=== PATIENT | female | born 1990 | race Caucasian/White ===

== ENCOUNTER 2018-08-30 13:36 | Emergency (ER) | payer MEDICAID ==
[~2018-08-30] VITALS: Ht 162.6 cm; Wt 52.3 kg
[~2018-08-30 13:36] MED LIST: CEPH-368 PO; IBUP-1222 PO; NITR100C56 PO; OXYC-302 PO; PREN1TAB56 PO
[2018-08-30 14:30] LABS: BASOPHILS # (AUTO) 0.05 x10^3/uL (0-0.1); BASOPHILS % (AUTO) 1 % (0-1); EOSINOPHILS # (AUTO) 0.14 x10^3/uL (0-0.4); EOSINOPHILS % (AUTO) 2 % (1-7); LYMPHOCYTES # (AUTO) 1.47 x10^3/uL (1-3.4); LYMPHOCYTES % (AUTO) 18 % (22-44); MD NO; MEAN CORPUSCULAR HEMOGLOBIN 28.7 pg (27.0-34.8); MEAN CORPUSCULAR HGB CONC 33.7 g/dL (32.4-35.8); MEAN CORPUSCULAR VOLUME 85.3 fL (80-100); MEAN PLATELET VOLUME 8.4 fL (7.4-10.4); MONOCYTES # (AUTO) 0.43 x10^3/uL (0.2-0.8); MONOCYTES % (AUTO) 5 % (2-9); NEUTROPHILS # (AUTO) 6.08 x10^3/uL (1.8-6.8); NEUTROPHILS % (AUTO) 74 % (42-75); PLATELET COUNT 324 x10^3/uL (130-400); RED BLOOD COUNT 5.18 x10^6/uL (3.82-5.3)
[2018-08-30 14:39] LABS: ALBUMIN 4.9 g/dL (3.4-5.0); ANION GAP 9 mmol/L (5-15); CALCIUM 9.5 mg/dL (8.5-10.1); CHLORIDE 106 mmol/L (98-107)
[2018-08-30 14:40] LABS: CREATININE 0.92 mg/dL (0.55-1.02)
[2018-08-30 16:13] VITALS: BP 116/77
[2018-08-30 16:26] LABS: CULTURE INDICATED? YES; HCG UR SG 1.026 (1.003-1.030); MICROSCOPIC INDICATED
[2018-08-30] MEDS ORDERED: CEFTRIAXONE 1,000 MG ONE (16:51)
[2018-08-30] MEDS ORDERED: CEFTRIAXONE 1,000 MG IM ONE (17:00)
== END 2018-08-30 17:16 | disposition home or self-care (01) ==
LOC: ED 17:10
DX: N30.01 Acute cystitis with hematuria (principal); F32.9 Major depressive disorder, single episode, unspecified
CPT/HCPCS: 36415; 80048; 81001; 81025; 82040; 83605; 85025; 87077; 87086; 96372; 99283; J0696; 87186

== ENCOUNTER 2018-10-01 14:21 | Emergency (ER) | payer MEDICAID ==
[~2018-10-01] VITALS: Ht 162.6 cm; Wt 50.3 kg
--- NOTE | 2018-10-01 14:34 | NUR ---
LATE ENTRY FOR 14:34. PT C/O UN-TREATED C-DIFF X 3 WEEKS. PT FAILED TO HAVE RX'S FILLED THAT WERE WRITTEN 3 WEEKS AGO AT [facility] DUE TO MED'S COST. PT DENIES V/N AND PAIN AT THIS TIME. PT AOX4. RESPS EVEN AND UNLABORED. SAO2 AND BP MONITORS IN PLACE. AWAITING ORDERS.
[2018-10-01] MEDS ORDERED: SERT100T5 PO (14:57)
[2018-10-01] MEDS ORDERED: ARIP2TAB2 PO (14:57)
[2018-10-01] MEDS ORDERED: TRAZ-137 PO (14:58)
[2018-10-01] MEDS ORDERED: SODIUM CHLORIDE FLUSH 10ML SYR IVF ONE (15:00)
--- NOTE | 2018-10-01 15:00 | NUR ---
Alexis dunn in [facility] - 10/01/18 at 1646 by ZHANG PT TO ROOM FROM SCOTTY
--- NOTE | 2018-10-01 15:05 | NUR ---
special contact precautions in place
[2018-10-01 15:06] LABS: MEAN CORPUSCULAR HEMOGLOBIN 28.1 pg (27.0-34.8); MEAN CORPUSCULAR VOLUME 85.2 fL (80-100); MEAN PLATELET VOLUME 7.8 fL (7.4-10.4); PLATELET COUNT 392 x10^3/uL (130-400); RED BLOOD COUNT 5.38 x10^6/uL (3.82-5.3); RED CELL DISTRIBUTION WIDTH 14.4 % (9.6-15.2)
[2018-10-01 15:14] LABS: ALANINE AMINOTRANSFERASE 18 U/L (12-78); ALBUMIN 4.1 g/dL (3.4-5.0); ANION GAP 10 mmol/L (5-15); CALCIUM 9.1 mg/dL (8.5-10.1); CHLORIDE 107 mmol/L (98-107)
[2018-10-01 15:19] LABS: ALKALINE PHOSPHATASE 111 U/L (45-117); BILIRUBIN,TOTAL 0.4 mg/dL (0.2-1.0); TOTAL PROTEIN 8.1 g/dL (6.4-8.2)
--- NOTE | 2018-10-01 15:45 | NUR ---
PT URINATING IN BEDSIDE COMMODE FOR UA.
[2018-10-01 15:51] LABS: BASOPHILS # (AUTO) 0.05 x10^3/uL (0-0.1); BASOPHILS % (AUTO) 0 % (0-1); EOSINOPHILS # (AUTO) 3.61 x10^3/uL (0-0.4); EOSINOPHILS % (AUTO) 28 % (1-7); LYMPHOCYTES # (AUTO) 2.09 x10^3/uL (1-3.4); LYMPHOCYTES % (AUTO) 16 % (22-44); MD SCAN; MONOCYTES % (AUTO) 4 % (2-9); NEUTROPHILS # (AUTO) 6.52 x10^3/uL (1.8-6.8); NEUTROPHILS % (AUTO) 51 % (42-75)
[2018-10-01 15:52] LABS: MICROSCOPIC AUTO
[2018-10-01 15:54] LABS: CULTURE INDICATED? YES
--- NOTE | 2018-10-01 16:00 | NUR ---
This RN discussed WBC and HR with EDPA (pt meeting SIRS criteria). Pt has not been able to produce stool so far. Pt instructed on need to provide stool sample for cdiff screen and leukocyte analysis. BSC with hat placed in room for collection.
--- NOTE | 2018-10-01 16:57 | NUR ---
PT RESTING IN [place]. PT HAS NOT BEEN ABLE TO PRODUCE STOOL YET. BEDSIDE COMMODE IN PT'S ROOM. SAO2 AND BP MONITORS IN PLACE. DENIES PAIN, NEEDS AND CONCERNS AT THIS TIME. CALL LIGHT WITHIN REACH. PT AOX4. RESPS EVEN AND UNLABORED.
--- NOTE | 2018-10-01 17:18 | NUR ---
PT PROVIDED SOME JUICE AND CRACKERS. PT AOX4. RESPS EVEN AND UNLABORED. DENIES ANY NEEDS AND CONCERNS AT THIS TIME.
--- NOTE | 2018-10-01 17:43 | NUR ---
Pt has not been able to produce stool yet so far. sao2 and bp monitors in place. call light within reach. denies any pain, needs and concerns at this time. pt provided warm blanket at this time.
[2018-10-01 18:43] VITALS: BP 107/71
--- NOTE | 2018-10-01 18:45 | NUR ---
Note shaun in EDM - 10/01/18 at 1847 by PAUL PT GIVEN DC INSTRUCTIONS AND SCRIPTS. PT EDUCATED REAGRDING DC MEDICATIONS WHICH ARE MCROBID AND ODT. PT AMB TO DC WITH STEADY GAIT. NO ACUTE DISTRESS AT DC.
--- NOTE | 2018-10-01 18:47 | NUR ---
PT GIVEN DC INSTRUCTIONS AND SCRIPTS. PT EDUCATED REAGRDING DC MEDICATIONS WHICH ARE MACROBID AND ODT. PT AMB TO DC WITH STEADY GAIT. NO ACUTE DISTRESS AT DC.
== END 2018-10-01 18:45 | disposition home or self-care (01) ==
LOC: ED 18:13
DX: N30.01 Acute cystitis with hematuria (principal); R19.7 Diarrhea, unspecified
CPT/HCPCS: 36415; 80053; 81001; 84703; 85025; 87086; 99283

== ENCOUNTER 2018-10-05 15:15 | Emergency (ER) | payer MEDICAID ==
[~2018-10-05] VITALS: Ht 162.6 cm; Wt 50.0 kg
[~2018-10-05 15:15] MED LIST changes: +ARIP2TAB2 PO; +SERT100T5 PO; +TRAZ-137 PO
[2018-10-05 15:18] VITALS: BP 109/61
--- NOTE | 2018-10-05 15:41 | NUR ---
PT CELESTINO [facility] FROM REHAB FACILITY FOR INCREASED URINARY FREQUENCY, ABD PAIN AND PAINFUL URINATION. SEEN THURSDAY FOR SAME BUT PT STATES, "I THINK I MIGHT BE RESISTENT TO MACROBID BECAUSE I GET UTIS ALL THE TIME AND DEBBY BEEN TAKING IT WITHOUT GETTING ANY BETTER." NO N/V OR BACK PAIN. VSS. CALL LIGHT WITHIN REACH. AWAITING FURTHER ORDERS AT THIS TIME
[2018-10-05 16:18] LABS: MEAN CORPUSCULAR HEMOGLOBIN 28.5 pg (27.0-34.8); MEAN CORPUSCULAR VOLUME 83.8 fL (80-100); MEAN PLATELET VOLUME 7.7 fL (7.4-10.4); PLATELET COUNT 336 x10^3/uL (130-400); RED BLOOD COUNT 4.61 x10^6/uL (3.82-5.3); RED CELL DISTRIBUTION WIDTH 14.2 % (9.6-15.2)
[2018-10-05 16:19] LABS: MD YES
[2018-10-05 16:21] LABS: ALANINE AMINOTRANSFERASE 17 U/L (12-78); ALBUMIN 3.4 g/dL (3.4-5.0); ANION GAP 7 mmol/L (5-15); CALCIUM 8.7 mg/dL (8.5-10.1); CHLORIDE 110 mmol/L (98-107); CREATININE 0.58 mg/dL (0.55-1.02)
[2018-10-05 16:24] LABS: ALKALINE PHOSPHATASE 94 U/L (45-117); BILIRUBIN,TOTAL 0.3 mg/dL (0.2-1.0); TOTAL PROTEIN 6.7 g/dL (6.4-8.2)
[2018-10-05 16:36] LABS: MICROSCOPIC INDICATED
--- NOTE | 2018-10-05 16:38 | NUR ---
IN AND OUT CATHETER FOR URINE PROCEDURE PERFORMED, USING STERILE TECHNIQUE THROUGHOUT, AND AN 8FR CATHETER. PT TOLERATED WELL. URINE SENT TO LAB.
[2018-10-05 16:51] LABS: CULTURE INDICATED? YES
[2018-10-05 17:01] LABS: BASOS% (MANUAL) 2 % (0-1); EOS% (MANUAL) 30 % (1-7); LYMPHS% (MANUAL) 27 % (22-44); SEGS% (MANUAL) 41 % (42-75)
[2018-10-05 17:02] LABS: <PLATELET ESTIMATE> ADEQUATE; <PLT MORPHOLOGY> NORMAL PLT MORPH; <RBC MORPHOLOGY> NORMAL
--- NOTE | 2018-10-05 17:13 | NUR ---
PT RESTING IN ROOM. LOUANN FORREST. CALL LIGHT WITHIN REACH. AWAITING LAB RESULTS AND RECHECK AT THIS TIME
[2018-10-05 17:16] LABS: HCG UR SG 1.025 (1.003-1.030)
== END 2018-10-05 17:42 | disposition home or self-care (01) ==
LOC: ED 16:19
DX: N30.00 Acute cystitis without hematuria (principal); F31.9 Bipolar disorder, unspecified
CPT/HCPCS: 36415; 80053; 81001; 81025; 85025; 87086; 99283

== ENCOUNTER 2018-12-02 13:14 | Emergency (ER) | payer MEDICAID ==
[~2018-12-02] VITALS: Ht 162.6 cm; Wt 51.0 kg
[~2018-12-02 13:14] MED LIST changes: +SERT100T32 PO; -SERT100T5 PO
[2018-12-02 13:34] VITALS: BP 109/76
--- NOTE | 2018-12-02 14:15 | NUR ---
TO ROOM 30
--- NOTE | 2018-12-02 14:15 | NUR ---
PELVIC SET UP
[2018-12-02] MEDS ORDERED: AZITHROMYCIN 250 MG TABLET ONE (14:27)
[2018-12-02] MEDS ORDERED: CEFTRIAXONE 250 MG ONE (14:27)
[2018-12-02] MEDS ORDERED: AZITHROMYCIN 250 MG TABLET PO ONE (14:30)
[2018-12-02] MEDS ORDERED: CEFTRIAXONE 250 MG IM ONE (14:30)
--- NOTE | 2018-12-02 14:55 | NUR ---
SBAR report received from RN, Isaac.
--- NOTE | 2018-12-02 15:20 | NUR ---
Patient/Caregiver given discharge instructions and they have confirmed that they understand the instructions. Patient ambulatory with steady gait.
== END 2018-12-02 15:22 | disposition home or self-care (01) ==
LOC: ED 15:18
DX: B34.9 Viral infection, unspecified (principal); A74.9 Chlamydial infection, unspecified; A54.9 Gonococcal infection, unspecified; F31.9 Bipolar disorder, unspecified
CPT/HCPCS: 87081; 87880; 96372; 99283; J0696; 87147

== ENCOUNTER 2018-12-10 11:28 | Emergency (ER) | payer MEDICAID ==
[~2018-12-10] VITALS: Ht 162.6 cm; Wt 50.5 kg
[2018-12-10 11:36] VITALS: BP 104/64
[2018-12-10 13:34] LABS: BASOPHILS # (AUTO) 0.03 x10^3/uL (0-0.1); BASOPHILS % (AUTO) 1 % (0-1); EOSINOPHILS # (AUTO) 0.15 x10^3/uL (0-0.4); EOSINOPHILS % (AUTO) 2 % (1-7); LYMPHOCYTES % (AUTO) 24 % (22-44); MD NO; MEAN CORPUSCULAR HEMOGLOBIN 28.3 pg (27.0-34.8); MEAN CORPUSCULAR HGB CONC 33.2 g/dL (32.4-35.8); MEAN CORPUSCULAR VOLUME 85.2 fL (80-100); MEAN PLATELET VOLUME 8.2 fL (7.4-10.4); MONOCYTES # (AUTO) 0.38 x10^3/uL (0.2-0.8); MONOCYTES % (AUTO) 5 % (2-9); NEUTROPHILS # (AUTO) 4.89 x10^3/uL (1.8-6.8); NEUTROPHILS % (AUTO) 68 % (42-75); PLATELET COUNT 318 x10^3/uL (130-400); RED BLOOD COUNT 5.33 x10^6/uL (3.82-5.3); RED CELL DISTRIBUTION WIDTH 14.4 % (9.6-15.2)
[2018-12-10 13:45] LABS: ALBUMIN 4.5 g/dL (3.4-5.0); ANION GAP 5 mmol/L (5-15); CALCIUM 9.3 mg/dL (8.5-10.1); CHLORIDE 112 mmol/L (98-107); CREATININE 0.79 mg/dL (0.55-1.02)
--- NOTE | 2018-12-10 16:08 | NUR ---
TO ROOM FROM LOBBY. NAD.
[2018-12-10 16:52] LABS: MICROSCOPIC INDICATED
[2018-12-10 17:05] LABS: CULTURE INDICATED? YES
[2018-12-10] MEDS ORDERED: DEXAMETHASONE 4 MG TABLET ONE (17:32)
--- NOTE | 2018-12-10 17:40 | NUR ---
PT MEDICATED PER EMAR. DC EDUCATION PROVIDED, PT DEMONSTRATES UNDERSTANDING. PT AMBULATED STEADILY TO DC WITH RN.
[2018-12-10] MEDS ORDERED: DEXAMETHASONE 4 MG TABLET PO ONE (18:00)
== END 2018-12-10 17:42 | disposition home or self-care (01) ==
LOC: ED 16:36
DX: J02.0 Streptococcal pharyngitis (principal); B95.5 Unspecified streptococcus as the cause of diseases classified elsewhere; N93.8 Other specified abnormal uterine and vaginal bleeding; F31.9 Bipolar disorder, unspecified; Z87.440 Personal history of urinary (tract) infections
CPT/HCPCS: 36415; 76830; 80048; 81001; 82040; 84703; 85025; 87086; 99284

== ENCOUNTER 2018-12-26 16:25 | Emergency (ER) | payer MEDICAID ==
[~2018-12-26] VITALS: Ht 162.6 cm; Wt 48.0 kg
--- NOTE | 2018-12-26 18:09 | NUR ---
[facility]
[2018-12-26 18:24] VITALS: BP 112/81
--- NOTE | 2018-12-26 18:25 | NUR ---
PT STATES UTI SYMPTOMS X2 DAYS, NO N/V/D REPORTED. LOWER ABD PAIN/CRAMPING. CONNECTED TO MONITORING, VSS. BRADSHAW TO BEDSIDE FOR ASSESSMENT, AWAITING ADDITIONAL ORDERS. UA COLLECTED AND SENT TO LAB. CALL LIGHT WITHIN REACH
[2018-12-26 18:39] LABS: CULTURE INDICATED? YES; MICROSCOPIC INDICATED
--- NOTE | 2018-12-26 18:39 | NUR ---
PT GIVEN FOOD PER MD PERMISSION.
[2018-12-26 18:40] LABS: HCG UR SG >= 1.030 (1.003-1.030)
--- NOTE | 2018-12-26 19:14 | NUR ---
Patient/Caregiver given discharge instructions and they have confirmed that they understand the instructions. Patient ambulatory with steady gait.
== END 2018-12-26 19:16 | disposition home or self-care (01) ==
LOC: ED 18:14
DX: N39.0 Urinary tract infection, site not specified (principal); R31.9 Hematuria, unspecified; F31.9 Bipolar disorder, unspecified
CPT/HCPCS: 81001; 81025; 87077; 87086; 87186; 99283

== ENCOUNTER 2019-12-08 23:45 | Emergency (ER) | payer MEDICAID ==
[~2019-12-08] VITALS: Ht 160 cm; Wt 47.7 kg
[~2019-12-08 23:45] MED LIST changes: -TRAZ-137 PO; +TRAZ-175 PO
[2019-12-09 00:19] LABS: BASOPHILS # (AUTO) 0.03 x10^3/uL (0-0.1); BASOPHILS % (AUTO) 0 % (0-1); EOSINOPHILS # (AUTO) 0.17 x10^3/uL (0-0.4); EOSINOPHILS % (AUTO) 2 % (1-7); LYMPHOCYTES # (AUTO) 2.79 x10^3/uL (1-3.4); LYMPHOCYTES % (AUTO) 29 % (22-44); MD NO; MEAN CORPUSCULAR HEMOGLOBIN 29.7 pg (27.0-34.8); MEAN CORPUSCULAR HGB CONC 33.8 g/dL (32.4-35.8); MEAN CORPUSCULAR VOLUME 87.9 fL (80-100); MEAN PLATELET VOLUME 7.8 fL (7.4-10.4); MONOCYTES # (AUTO) 0.63 x10^3/uL (0.2-0.8); MONOCYTES % (AUTO) 7 % (2-9); NEUTROPHILS # (AUTO) 6.03 x10^3/uL (1.8-6.8); NEUTROPHILS % (AUTO) 63 % (42-75); PLATELET COUNT 328 x10^3/uL (130-400); RED BLOOD COUNT 4.94 x10^6/uL (3.82-5.3); RED CELL DISTRIBUTION WIDTH 13.8 % (9.6-15.2)
[2019-12-09 00:30] LABS: ALBUMIN 4.4 g/dL (3.4-5.0); ANION GAP 7 mmol/L (5-15); CALCIUM 9.5 mg/dL (8.5-10.1); CHLORIDE 105 mmol/L (98-107); CREATININE 0.67 mg/dL (0.55-1.02); SALICYLATE LEVEL < 1.7 mg/dL (2.8-20.0)
--- NOTE | 2019-12-09 02:15 | NUR ---
FIRST CONTACT WITH PT. PT SITTING UP IN [place] [facility] NOTED. PT REPORTS 'FEELING OFF' SINCE SA 11/28 BY OD ON PROZAC. PT DENIES SI/HI AT THIS TIME. "I'M JUST FEELING OFF. I THINK I NEED MY CHEMICALS CHECKED." DENIES PAIN/NAUSEA/VOMITING/WEAKNESS. GROSS NEURO INTACT. HX OF SEVERE DEPRESSION.
[2019-12-09] MEDS ORDERED: FLUO10CA13 PO (02:20)
--- NOTE | 2019-12-09 02:44 | NUR ---
PT REFUSED NEED FOR TAXI VOUCHER, STATED SHE ONLY NEEDED TO WALK 1 BLOCK
[2019-12-09 02:45] VITALS: BP 125/90
== END 2019-12-09 02:47 | disposition home or self-care (01) ==
LOC: ED 12-09 01:47
DX: T43.221A Poisoning by selective serotonin reuptake inhibitors, accidental (unintentional), initial encounter (principal); Y92.89 Other specified places as the place of occurrence of the external cause; R51 Headache; R53.83 Other fatigue; I51.7 Cardiomegaly
CPT/HCPCS: 36415; 80048; 80307; 82040; 85025; 93005; 99284

== ENCOUNTER 2019-12-11 19:13 | Emergency (ER) | payer MEDICAID ==
[~2019-12-11] VITALS: Ht 160 cm; Wt 47.4 kg
[~2019-12-11 19:13] MED LIST changes: +FLUO10CA13 PO
--- NOTE | 2019-12-11 19:36 | NUR ---
ERP AT BEDSIDE.
[2019-12-11] MEDS ORDERED: ACETAMINOPHEN 500 MG TABLET ONE (19:45)
[2019-12-11] MEDS ORDERED: DIPHENHYDRAMINE 25 MG CAPSULE ONE (19:45)
[2019-12-11] MEDS ORDERED: KETOROLAC 30 MG/1 ML ONE (19:45)
[2019-12-11] MEDS ORDERED: PROCHLORPERAZINE 5 MG/ML, 2ML ONE (19:45)
[2019-12-11] MEDS ORDERED: PROCHLORPERAZINE 5 MG/ML, 2ML IVPush ONE (20:00)
[2019-12-11] MEDS ORDERED: SODIUM CHLORIDE 0.9% 1,000ML IVBOLUS ONE (20:00)
[2019-12-11] MEDS ORDERED: ACETAMINOPHEN 325 MG TABLET PO ONE (20:00)
[2019-12-11] MEDS ORDERED: ACETAMINOPHEN 500 MG TABLET PO ONE (20:00)
[2019-12-11] MEDS ORDERED: KETOROLAC 30 MG/1 ML IVPush ONE (20:00)
[2019-12-11] MEDS ORDERED: DIPHENHYDRAMINE 25 MG CAPSULE PO ONE (20:00)
[2019-12-11 20:04] VITALS: BP 118/77
--- NOTE | 2019-12-11 20:30 | NUR ---
REFUSING LAB DRAW. ERP UPDATED.
--- NOTE | 2019-12-11 20:41 | NUR ---
PER PT REQUEST STOPPED IV BOLUS AND REMOVED IV, IV WITH TIP INTACT.
== END 2019-12-11 21:01 | disposition home or self-care (01) ==
LOC: ED 20:13
DX: R51 Headache (principal); R42 Dizziness and giddiness
CPT/HCPCS: 96361; 96374; 96375; 99284; J0780; J1885; J7030; Q0163

== ENCOUNTER 2019-12-13 09:54 | Emergency (ER) | payer MEDICAID ==
[~2019-12-13] VITALS: Ht 162.6 cm; Wt 47.7 kg
[2019-12-13 11:06] LABS: BASOPHILS # (AUTO) 0.05 x10^3/uL (0-0.1); BASOPHILS % (AUTO) 1 % (0-1); EOSINOPHILS % (AUTO) 1 % (1-7); LYMPHOCYTES # (AUTO) 1.73 x10^3/uL (1-3.4); LYMPHOCYTES % (AUTO) 21 % (22-44); MD NO; MEAN CORPUSCULAR HEMOGLOBIN 29.8 pg (27.0-34.8); MEAN CORPUSCULAR VOLUME 87.6 fL (80-100); MEAN PLATELET VOLUME 8.2 fL (7.4-10.4); MONOCYTES # (AUTO) 0.58 x10^3/uL (0.2-0.8); MONOCYTES % (AUTO) 7 % (2-9); NEUTROPHILS # (AUTO) 5.67 x10^3/uL (1.8-6.8); NEUTROPHILS % (AUTO) 70 % (42-75); PLATELET COUNT 332 x10^3/uL (130-400); RED BLOOD COUNT 4.92 x10^6/uL (3.82-5.3); RED CELL DISTRIBUTION WIDTH 13.8 % (9.6-15.2)
[2019-12-13 11:18] LABS: ALANINE AMINOTRANSFERASE 24 U/L (12-78); ALBUMIN 4.5 g/dL (3.4-5.0); ANION GAP 11 mmol/L (5-15); CALCIUM 9.4 mg/dL (8.5-10.1); CHLORIDE 106 mmol/L (98-107); CREATININE 0.71 mg/dL (0.55-1.02)
[2019-12-13 11:23] LABS: ALKALINE PHOSPHATASE 110 U/L (45-117); BILIRUBIN,TOTAL 1.1 mg/dL (0.2-1.0); TOTAL PROTEIN 8.5 g/dL (6.4-8.2)
--- NOTE | 2019-12-13 14:32 | NUR ---
ULTRASONIC HAND SOLDERER: PT TO ROOM FROM LOBBY
[2019-12-13 15:36] VITALS: BP 137/72
--- NOTE | 2019-12-13 15:36 | NUR ---
PATIENT STILL UNABLE TO VOID pROVIDER MADE AWARE
[2019-12-13] MEDS ORDERED: ONDANSETRON ODT 4 MG ONE (15:56)
[2019-12-13] MEDS ORDERED: IBUPROFEN 600 MG TABLET ONE (15:56)
[2019-12-13] MEDS ORDERED: ONDANSETRON ODT 4 MG PO ONE (16:00)
[2019-12-13] MEDS ORDERED: IBUPROFEN 600 MG TABLET PO ONE (16:00)
[2019-12-13 16:31] LABS: MICROSCOPIC INDICATED
--- NOTE | 2019-12-13 16:33 | NUR ---
PATIENT WOULD LIKE TO LEAVE (TIRED OF WAITING). UA NOT RESULTED. LAB WORKING ON IT PATIENT LEFT PHONE NUMBER. TO CALL HER WILL RESULTS IF ABNORMALITIES FOUND DR. MEREDITH AWARE
[2019-12-13 16:38] LABS: CULTURE INDICATED? NO
== END 2019-12-13 16:38 | disposition home or self-care (01) ==
LOC: ED 10:54
DX: G44.209 Tension-type headache, unspecified, not intractable (principal); R11.2 Nausea with vomiting, unspecified
CPT/HCPCS: 36415; 80053; 81001; 83690; 84703; 85025; 99283; Q0162

== ENCOUNTER 2019-12-24 14:15 | Emergency (ER) | payer MEDICAID ==
[~2019-12-24] VITALS: Ht 160 cm; Wt 48.0 kg
[2019-12-24 14:44] VITALS: BP 118/84
== END 2019-12-24 15:11 | disposition home or self-care (01) ==
LOC: ED 14:55
DX: J00 Acute nasopharyngitis [common cold] (principal)
CPT/HCPCS: 99281

== ENCOUNTER 2020-03-01 13:28 | Emergency (ER) | payer MEDICAID ==
[~2020-03-01] VITALS: Ht 162.6 cm; Wt 47.0 kg
[2020-03-01 13:31] VITALS: BP 123/71
--- NOTE | 2020-03-01 14:16 | NUR ---
TASK RN: ALL RESULTS ARE BACK AT THIS TIME. CHART UP FOR RECHECK.
== END 2020-03-01 14:43 | disposition home or self-care (01) ==
LOC: ED 14:26
DX: J02.9 Acute pharyngitis, unspecified (principal); Z20.828 Contact with and (suspected) exposure to other viral communicable diseases; R50.9 Fever, unspecified; R05 Cough; G40.909 Epilepsy, unspecified, not intractable, without status epilepticus
CPT/HCPCS: 71045; 99284; U0001

== ENCOUNTER 2020-03-20 17:36 | Emergency (ER) | payer MEDICAID ==
[~2020-03-20] VITALS: Ht 160 cm; Wt 45.4 kg
[2020-03-20 17:43] VITALS: BP 125/67
[2020-03-20] MEDS ORDERED: CEFTRIAXONE 250 MG ONE (18:14)
[2020-03-20] MEDS ORDERED: LIDOCAINE-MPF 1%, 5ML ONE (18:14)
[2020-03-20] MEDS ORDERED: AZITHROMYCIN 500 MG TABLET ONE (18:14)
--- NOTE | 2020-03-20 18:26 | NUR ---
PT MEDICATED PER DEC, UA SENT TO LAB. PT TO BE DC
[2020-03-20] MEDS ORDERED: AZITHROMYCIN 500 MG TABLET PO ONE (18:30)
[2020-03-20] MEDS ORDERED: CEFTRIAXONE 250 MG IM ONE (18:30)
--- NOTE | 2020-03-20 19:17 | NUR ---
PT. OUT IN [facility] REQUESTING D/C PAPERWORK. D/C INSTRUCITONS PROVIDED AND PT. VERBALIZED UNDERSTANDING OF ALL D/C INSTRUCTIONS. AMBULATORY TO D/C DESK WITH STEADY GAIT. NO DISTRESS NOTED. SKIN PWD. REFUSED VS PRIOR TO D/C.
== END 2020-03-20 19:28 | disposition home or self-care (01) ==
LOC: ED 19:21
DX: A74.9 Chlamydial infection, unspecified (principal); A54.9 Gonococcal infection, unspecified
CPT/HCPCS: 87491; 87591; 96372; 99283; J0696

== ENCOUNTER 2020-03-27 22:10 | Emergency (ER) | payer MEDICAID ==
[~2020-03-27] VITALS: Ht 160 cm; Wt 46.3 kg
--- NOTE | 2020-03-27 22:32 | NUR ---
PT TO ROOM FROM LOBBY
--- NOTE | 2020-03-27 22:50 | NUR ---
FIRST CONTACT WITH PT. PT CAME IN FOR POSSIBLE UTI. PT REPORTS BURNING UPON URINATION. PT RESTING IN [facility], NAD, DENIES FLANK PAIN, VSS. GIVEN WARM BLANKET FOR COMFORT. WCTM.
--- NOTE | 2020-03-27 23:24 | NUR ---
PRECEPTOR RN: URINE COLLECTED, LABELED AND SENT TO LAB
[2020-03-27 23:37] LABS: MICROSCOPIC INDICATED
--- NOTE | 2020-03-28 | NUR ---
PT CONDITION UNCHANGED, NAD, VSS, RESP WNL, WCTM.
[2020-03-28 01:16] VITALS: BP 121/76
--- NOTE | 2020-03-28 01:40 | NUR ---
RN explained discharge paperwork with patient and explained the potenital risk of taking the prescribed medication, patient verbalized understanding. patient steadily ambulated out to waiting room
== END 2020-03-28 01:43 ==
LOC: ED 03-28 01:42
DX: N20.1 Calculus of ureter (principal); R31.9 Hematuria, unspecified; R10.33 Periumbilical pain
CPT/HCPCS: 74021; 81001; 81025; 87086; 99284

== ENCOUNTER 2020-06-26 16:33 | Emergency (ER) | payer MEDICAID ==
[~2020-06-26] VITALS: Ht 160 cm; Wt 52.4 kg
[2020-06-26 16:33] VITALS: BP 116/70
[2020-06-26] MEDS ORDERED: FLUO40CA9 PO (16:47)
[2020-06-26] MEDS ORDERED: LURA40TA PO (16:48)
[2020-06-26] MEDS ORDERED: SODIUM CHLORIDE FLUSH 10ML SYR IVF ONE (17:00)
[2020-06-26] MEDS ORDERED: KETOROLAC 30 MG/1 ML IVPush ONE (17:00)
[2020-06-26] MEDS ORDERED: ONDANSETRON 2MG/ML, 2ML IVPush ONE (17:00)
[2020-06-26 17:08] LABS: MICROSCOPIC INDICATED
[2020-06-26 17:13] LABS: BASOPHILS # (AUTO) 0.03 x10^3/uL (0-0.1); BASOPHILS % (AUTO) 1 % (0-1); EOSINOPHILS # (AUTO) 0.26 x10^3/uL (0-0.4); EOSINOPHILS % (AUTO) 4 % (1-7); LYMPHOCYTES # (AUTO) 2.28 x10^3/uL (1-3.4); LYMPHOCYTES % (AUTO) 38 % (22-44); MD NO; MEAN CORPUSCULAR HEMOGLOBIN 29.2 pg (27.0-34.8); MEAN CORPUSCULAR HGB CONC 32.7 g/dL (32.4-35.8); MEAN CORPUSCULAR VOLUME 89.1 fL (80-100); MONOCYTES # (AUTO) 0.53 x10^3/uL (0.2-0.8); MONOCYTES % (AUTO) 9 % (2-9); NEUTROPHILS # (AUTO) 2.96 x10^3/uL (1.8-6.8); NEUTROPHILS % (AUTO) 49 % (42-75); PLATELET COUNT 271 x10^3/uL (130-400); RED CELL DISTRIBUTION WIDTH 13.6 % (9.6-15.2)
[2020-06-26 17:23] LABS: ALANINE AMINOTRANSFERASE 29 U/L (12-78); ALBUMIN 3.7 g/dL (3.4-5.0); ANION GAP 6 mmol/L (5-15); CALCIUM 9.5 mg/dL (8.5-10.1); CHLORIDE 111 mmol/L (98-107); CREATININE 0.69 mg/dL (0.55-1.02)
[2020-06-26 17:25] LABS: ALKALINE PHOSPHATASE 79 U/L (45-117); BILIRUBIN,TOTAL 0.7 mg/dL (0.2-1.0)
[2020-06-26] MEDS ORDERED: ONDANSETRON 2MG/ML, 2ML ONE (17:42)
[2020-06-26] MEDS ORDERED: KETOROLAC 30 MG/1 ML ONE (17:42)
--- NOTE | 2020-06-26 17:48 | NUR ---
PT MEDICATED PER DEC. PT TO CT AT THIS TIME.
--- NOTE | 2020-06-26 18:35 | NUR ---
Patient given discharge instructions and they have confirmed that they understand the instructions. Patient ambulatory with steady gait.
== END 2020-06-26 18:36 | disposition home or self-care (01) ==
LOC: ED 17:50
DX: N20.0 Calculus of kidney (principal); R10.11 Right upper quadrant pain; R11.0 Nausea
CPT/HCPCS: 36415; 74176; 76700; 80053; 81001; 83690; 85025; 87086; 96374; 96375; 99285; J1885; J2405

== ENCOUNTER 2020-12-18 14:20 | Emergency (ER) | payer MEDICAID ==
[~2020-12-18] VITALS: Ht 162.6 cm; Wt 54.8 kg
[~2020-12-18 14:20] MED LIST changes: +FLUO40CA9 PO; +LURA40TA PO; -OXYC-302 PO; +OXYC1TAB14 PO
[2020-12-18 14:35] VITALS: BP 102/38
[2020-12-18 15:56] LABS: MICROSCOPIC INDICATED
--- NOTE | 2020-12-18 16:25 | NUR ---
dc instructions reviewed
== END 2020-12-18 16:28 | disposition home or self-care (01) ==
LOC: ED 16:22
DX: F19.139 Other psychoactive substance abuse with withdrawal, unspecified (principal); M25.551 Pain in right hip; M25.552 Pain in left hip; R07.89 Other chest pain; R10.9 Unspecified abdominal pain
CPT/HCPCS: 81001; 87086; 93005; 99284

== ENCOUNTER 2020-12-19 21:26 | Emergency (ER) | payer MEDICAID ==
[~2020-12-19] VITALS: Ht 162.6 cm; Wt 55.7 kg
--- NOTE | 2020-12-19 23:01 | NUR ---
CC OF CP 05/14 IN CENTER CHEST SINCE YESTERDAY AT 1200. PT STATES SHE WAS SEEN HERE YESTERDAY FOR SAME AND TOLD TO COME BACK IF WORSENED. YESTERDAY CP "BOUNCED AROUND" AND TODAY IT HAS NOT. ALSO HAS NAUSEA, SOB, AND THROAT TIGHTNESS. SO AT BEDSIDE
[2020-12-19] MEDS ORDERED: KETOROLAC 30 MG/1 ML ONE (23:11)
[2020-12-19] MEDS ORDERED: KETOROLAC 30 MG/1 ML IM ONE (23:30)
[2020-12-19 23:34] LABS: BASOPHILS % (AUTO) 1 % (0-1); EOSINOPHILS % (AUTO) 3 % (1-7); LYMPHOCYTES % (AUTO) 30 % (22-44); MEAN CORPUSCULAR HEMOGLOBIN 29.8 pg (27.0-34.8); MEAN CORPUSCULAR HGB CONC 33.8 g/dL (32.4-35.8); MEAN PLATELET VOLUME 8.3 fL (7.4-10.4); MONOCYTES % (AUTO) 7 % (2-9); NEUTROPHILS % (AUTO) 59 % (42-75); PLATELET COUNT 262 x10^3/uL (130-400); RED BLOOD COUNT 4.97 x10^6/uL (3.82-5.3); RED CELL DISTRIBUTION WIDTH 13.7 % (9.6-15.2)
[2020-12-19 23:40] LABS: ANION GAP 5 mmol/L (5-15); CHLORIDE 105 mmol/L (98-107)
[2020-12-19 23:42] LABS: MD NO
[2020-12-19 23:46] LABS: CREATININE 1.02 mg/dL (0.55-1.02)
--- NOTE | 2020-12-20 00:07 | NUR ---
pt states pain has decresed from 8-9/10 down to 5/10.
[2020-12-20 00:56] VITALS: BP 117/58
== END 2020-12-20 01:03 | disposition home or self-care (01) ==
LOC: ED 12-20 00:48
DX: R07.89 Other chest pain (principal)
CPT/HCPCS: 36415; 71045; 80048; 82040; 84703; 85025; 85379; 93005; 99285; J1885

== ENCOUNTER 2021-01-17 15:02 | Emergency (ER) | payer MEDICAID ==
[~2021-01-17] VITALS: Ht 162.6 cm; Wt 54.6 kg
[2021-01-17] MEDS ORDERED: METOCLOPRAMIDE 5 MG/ML, 2ML IVPush ONE (16:30)
[2021-01-17] MEDS ORDERED: DIPHENHYDRAMINE 50 MG/ML, 1ML IVPush ONE (16:30)
[2021-01-17] MEDS ORDERED: DIPHENHYDRAMINE 50 MG/ML, 1ML ONE (16:39)
[2021-01-17] MEDS ORDERED: METOCLOPRAMIDE 5 MG/ML, 2ML ONE (16:39)
[2021-01-17 16:52] LABS: BASOPHILS % (AUTO) 1 % (0-1); EOSINOPHILS % (AUTO) 3 % (1-7); LYMPHOCYTES % (AUTO) 30 % (22-44); MEAN CORPUSCULAR HEMOGLOBIN 29.7 pg (27.0-34.8); MEAN CORPUSCULAR HGB CONC 34.4 g/dL (32.4-35.8); MEAN PLATELET VOLUME 7.9 fL (7.4-10.4); MONOCYTES % (AUTO) 7 % (2-9); NEUTROPHILS % (AUTO) 60 % (42-75); PLATELET COUNT 294 x10^3/uL (130-400); RED BLOOD COUNT 5.12 x10^6/uL (3.82-5.3); RED CELL DISTRIBUTION WIDTH 13.1 % (9.6-15.2)
[2021-01-17 16:53] LABS: MD NO
[2021-01-17 17:01] LABS: ALBUMIN 4.5 g/dL (3.4-5.0); ANION GAP 8 mmol/L (5-15); CALCIUM 9.6 mg/dL (8.5-10.1); CHLORIDE 107 mmol/L (98-107)
[2021-01-17 17:13] LABS: ALANINE AMINOTRANSFERASE 29 U/L (12-78); ALKALINE PHOSPHATASE 85 U/L (45-117); BILIRUBIN,TOTAL 1.3 mg/dL (0.2-1.0); CREATININE 0.71 mg/dL (0.55-1.02)
[2021-01-17 18:02] LABS: MICROSCOPIC AUTO
[2021-01-17 18:56] VITALS: BP 115/74
--- NOTE | 2021-01-17 18:56 | NUR ---
TASK RN: Patient/Caregiver given discharge instructions and they have confirmed that they understand the instructions. Patient ambulatory with steady gait.
== END 2021-01-17 18:58 | disposition home or self-care (01) ==
LOC: ED 18:45
DX: F51.04 Psychophysiologic insomnia (principal); G43.909 Migraine, unspecified, not intractable, without status migrainosus; R11.0 Nausea; G40.909 Epilepsy, unspecified, not intractable, without status epilepticus
CPT/HCPCS: 36415; 80053; 81001; 84443; 84703; 85025; 87086; 96374; 96375; 99284; J1200; J2765

== ENCOUNTER 2021-02-23 03:41 | Emergency (ER) | payer MEDICAID ==
[~2021-02-23] VITALS: Ht 160 cm; Wt 54.9 kg
[2021-02-23 04:43] LABS: BASOPHILS % (AUTO) 1 % (0-1); EOSINOPHILS % (AUTO) 2 % (1-7); LYMPHOCYTES % (AUTO) 36 % (22-44); MEAN CORPUSCULAR HEMOGLOBIN 29.5 pg (27.0-34.8); MEAN CORPUSCULAR HGB CONC 34.3 g/dL (32.4-35.8); MEAN PLATELET VOLUME 8.1 fL (7.4-10.4); MONOCYTES % (AUTO) 8 % (2-9); NEUTROPHILS % (AUTO) 53 % (42-75); PLATELET COUNT 282 x10^3/uL (130-400); RED BLOOD COUNT 4.41 x10^6/uL (3.82-5.3); RED CELL DISTRIBUTION WIDTH 13.3 % (9.6-15.2)
[2021-02-23 04:44] LABS: MD NO
[2021-02-23 04:52] LABS: MICROSCOPIC INDICATED
[2021-02-23 04:53] LABS: ALANINE AMINOTRANSFERASE 17 U/L (12-78); ALBUMIN 3.8 g/dL (3.4-5.0); ANION GAP 5 mmol/L (5-15); CHLORIDE 108 mmol/L (98-107); CREATININE 0.67 mg/dL (0.55-1.02)
[2021-02-23 04:58] LABS: ALKALINE PHOSPHATASE 71 U/L (45-117); BILIRUBIN,TOTAL 0.5 mg/dL (0.2-1.0); TOTAL PROTEIN 6.8 g/dL (6.4-8.2)
[2021-02-23] MEDS ORDERED: IBUPROFEN 800 MG TABLET ONE (05:29)
[2021-02-23] MEDS ORDERED: IBUPROFEN 800 MG TABLET PO ONE (05:30)
--- NOTE | 2021-02-23 06:55 | NUR ---
REPORT GIVEN TO ALEK FELICIANO. PT RESTING IN [facility], STATES PAIN IS A LITTLE BETTER, NO OTNEHR NEEDS AT THIS TIME. AWAITING US RESULTS
--- NOTE | 2021-02-23 07:15 | NUR ---
report received from ALEK Mg, this RN assuming care.
[2021-02-23 07:55] VITALS: BP 110/60
--- NOTE | 2021-02-23 07:56 | NUR ---
pt provided with discharge education and paperwork, pt educated regarding f/u instructions and rx for motrin. pt denies pain at this time. no n/v at time of dc. pt a&o, resps even and unlabored, no complaint at dc. pt ambulatory to dc desk with steady gait. all questions answered.
== END 2021-02-23 07:57 | disposition home or self-care (01) ==
LOC: ED 04:11
DX: R10.32 Left lower quadrant pain (principal); R10.2 Pelvic and perineal pain
CPT/HCPCS: 36415; 76830; 80053; 81001; 83690; 84703; 85025; 87086; 99284

== ENCOUNTER 2021-07-02 21:54 | Emergency (ER) | payer MEDICAID ==
[~2021-07-02] VITALS: Ht 162.6 cm; Wt 52.6 kg
[~2021-07-02 21:54] MED LIST changes: +OXYC1TAB12 PO; -OXYC1TAB14 PO
[2021-07-02 21:59] VITALS: BP 128/77
--- NOTE | 2021-07-02 22:05 | NUR ---
PROVIDED P W/ URINE CUP
--- NOTE | 2021-07-02 22:23 | NUR ---
pt to room from lobby
[2021-07-02] MEDS ORDERED: KETOROLAC 60 MG/2 ML ONE (22:49)
[2021-07-02] MEDS ORDERED: DIPHENHYDRAMINE 25 MG CAPSULE ONE (22:49)
[2021-07-02] MEDS ORDERED: METOCLOPRAMIDE 10MG TABLET ONE (22:49)
[2021-07-02] MEDS ORDERED: DIPHENHYDRAMINE 25 MG CAPSULE PO ONE (23:00)
[2021-07-02] MEDS ORDERED: KETOROLAC 30 MG/1 ML IM ONE (23:00)
[2021-07-02] MEDS ORDERED: METOCLOPRAMIDE 10MG TABLET PO ONE (23:00)
[2021-07-02 23:09] LABS: MICROSCOPIC INDICATED
[2021-07-02 23:56] LABS: BASOPHILS % (AUTO) 1 % (0-1); EOSINOPHILS % (AUTO) 5 % (1-7); LYMPHOCYTES % (AUTO) 42 % (22-44); MEAN CORPUSCULAR HEMOGLOBIN 29.6 pg (27.0-34.8); MEAN PLATELET VOLUME 8.2 fL (7.4-10.4); MONOCYTES % (AUTO) 8 % (2-9); NEUTROPHILS % (AUTO) 44 % (42-75); PLATELET COUNT 299 x10^3/uL (130-400); RED BLOOD COUNT 4.66 x10^6/uL (3.82-5.3); RED CELL DISTRIBUTION WIDTH 13.3 % (9.6-15.2)
[2021-07-03 00:08] LABS: ALBUMIN 3.7 g/dL (3.4-5.0); ANION GAP 4 mmol/L (5-15); CALCIUM 9.3 mg/dL (8.5-10.1); CHLORIDE 107 mmol/L (98-107)
[2021-07-03 00:16] LABS: CREATININE 0.57 mg/dL (0.55-1.02)
--- NOTE | 2021-07-03 00:41 | NUR ---
Patient given discharge instructions and they have confirmed that they understand the instructions. Patient ambulatory with steady gait. NAD, all questions answered appropriately, denies additional needs at this time. No personal belongings left in room after discharge.
== END 2021-07-03 00:43 | disposition home or self-care (01) ==
LOC: ED 21:59
DX: R51.9 Headache, unspecified (principal); R31.9 Hematuria, unspecified
CPT/HCPCS: 36415; 80048; 81001; 82040; 84703; 85025; 87086; 96372; 99283; J1885; Q0181